=== PATIENT | male | born 1955 | race Caucasian/White ===

== ENCOUNTER → 2021-06-20 09:03 | Outpatient (BNVA) | payer MEDICARE, SELFPAY | PROVIDERS: PCP Family Medicine; Referring Provider Family Medicine; Visit Provider Anesthesiology Pain Medicine | DX: M51.16 Intervertebral disc disorders with radiculopathy, lumbar region (principal); M47.816 Spondylosis without myelopathy or radiculopathy, lumbar region; Z98.890 Other specified postprocedural states; Z79.891 Long term (current) use of opiate analgesic | CPT/HCPCS: 99204 ==

== ENCOUNTER 2021-07-13 06:57 | Outpatient (CLI) | payer MEDICARE, SELFPAY ==
--- NOTE | 2021-07-13 07:15 | MR_ITS ---
WS: [id number] MRI LUMBAR SPINE NONCONTRAST HISTORY: Chronic low back pain and RIGHT leg pain COMPARISON: None available. TECHNIQUE: Sagittal and axial multisequence imaging is submitted. Advanced degenerative disc disease with osteophytes and disc bulging in the cervical spine. Most sign ificant at C4-5 and C6-7 where there is disc and osteophyte contact on the central canal. Additional smaller protrusions throughout the thoracic spine at multiple levels. No high-grade stenosis identifi ed on the appointment setter series. Straightening of the normal lumbar lordosis. Advanced degenerative disc disease and osteophytosis throughout the lumbar spine. Increased T1 and T2 signal in the L5 vertebral body which is low signal on the STIR sequence therefore likely fatty repl acement. There is a small amount of marrow edema in the LEFT L4 pedicle and facet. No fractures. Conus terminates normally at L1-2 disc level. T10-11: Central disc protrusion contacting and causing slight deformity the ventral cord. L1-L2: Diffuse moderate annular disc bulging and osteophytic ridging with mild ligamentum flavum hype rtrophy and facet arthritis. Mild central and bilateral subarticular and foraminal stenosis. Mild fac et joint arthritis. L2-L3: Diffuse annular disc bulging and osteophytic ridging with mild ligamentum flavum hypertrophy a nd facet arthritis. Mild narrowing of the central canal and foramen. Mild facet joint arthritis. L3-L4: Moderate annular disc bulging with osteophytic ridging. Disc is contacting and deforming the v entral thecal sac and moderate bilateral subarticular recess and RIGHT foraminal stenosis. Severe LEF T foraminal stenosis with complete effacement of fat. Moderate bilateral facet joint arthritis, LEFT greater than RIGHT. L4-L5: Diffuse moderate annular disc bulging asymmetric to the LEFT. There is disc contacting the tra versing L5 nerve roots of slight displacement. Moderate central stenosis with moderate RIGHT subartic ular and foraminal stenosis. Severe LEFT subarticular and foraminal stenosis. Marked bilateral facet joint arthritis, LEFT greater than RIGHT. L5-S1: Marked annular disc bulging with a central disc protrusion. Diffuse osteophytic ridging around the vertebral bodies. Mild central stenosis with moderate to severe bilateral subarticular foraminal stenosis. Fluid in the facet joints bilaterally with severe facet arthritis. Patient denied prior surgery. There does appear to be a LEFT hemilaminectomy defect at the L5-S1 leve l. Possible additional laminectomy defects at L3-4 and L4-5 which may be quite remote. MR/MR lumbar spine wo con* [id number] IMPRESSION: 1. Mild central stenosis with moderate to severe bilateral subarticular and fo raminal stenosis at L5-S1. Complete effacement of fat in the foramen. 2. Severe LEFT subarticular foraminal stenosis at L4-5 with moderate central a nd RIGHT subarticular foraminal stenosis. 3. Severe LEFT foraminal stenosis at L3-4 with moderate bilateral subarticular and RIGHT foraminal stenosis. 4. Mild central, bilateral subarticular and foraminal stenosis at L1-2. 5. Facet joint arthritis throughout the lumbar spine, most significant from L3 -4 to L5-S1. 6. Central disc protrusion at T10-11 contacts and causing slight deformity of the ventral cord.
== END 2021-07-13 06:58 | disposition home or self-care (01) ==
LOC: RADSHAW 07:01
PROVIDERS: PCP Family Medicine; Visit Provider Anesthesiology Pain Medicine
DX: Z98.890 Other specified postprocedural states (principal); M79.604 Pain in right leg; M48.061 Spinal stenosis, lumbar region without neurogenic claudication; M47.817 Spondylosis without myelopathy or radiculopathy, lumbosacral region; M47.816 Spondylosis without myelopathy or radiculopathy, lumbar region; M51.24 Other intervertebral disc displacement, thoracic region
CPT/HCPCS: 72148

== ENCOUNTER → 2021-07-16 09:04 | Outpatient (BNVA) | payer MEDICARE, SELFPAY | PROVIDERS: PCP Family Medicine; Visit Provider Anesthesiology Pain Medicine | DX: M51.16 Intervertebral disc disorders with radiculopathy, lumbar region (principal); M47.816 Spondylosis without myelopathy or radiculopathy, lumbar region; Z98.890 Other specified postprocedural states; M79.604 Pain in right leg; M79.605 Pain in left leg; Z79.891 Long term (current) use of opiate analgesic | CPT/HCPCS: 99215 ==

== ENCOUNTER 2021-07-25 14:12 | Outpatient (CLI) | payer MEDICARE, SELFPAY ==
--- NOTE | 2021-07-25 17:23 | ONC CON_ITS ---
Dr. Correa New Patient Note Patient: Mike Johnson Unit #: [id number]: 1955 Dicatated By: Jenlele Correa M.D.Date of Visit: Jul 25, 2021 Onc MED New Patient/Consult Referring Physician: Jabier Rodríguez History of Present Illness: Mr. 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, as per patient he went for routine checkup and underwent screening colonoscopy and found to have upper rectal mass and biopsy confirmed adenocarcinoma clinical stage was T4 N1 M0 based on scans, and his CEA was 40.8, patient was started on combined chemoradiation with continuous infusional 5-FU on April 09, 2017 and he underwent low anterior resection on August 06, 2017 and final pathology report showed T3 N0 M0 disease with a positive circumferential radial margins of both rectum and sigmoid colon, patient was offered adjuvant therapy with FOLFOX 6 which she started on September 15, 2017, subsequently patient developed progressive peripheral neuropathy involving bilateral fingertips and toes requiring oxaliplatin dose reduction to complete adjuvant chemotherapy, as per patient he was treated with Cymbalta and lidocaine cream without much help, he was evaluated by neurology, he was given gabapentin, patient has history of chronic back pain for which he is followed in pain clinic, patient received all these treatments in [place] and was followed by medical oncology there until June 2020, when he had his yearly follow-up CT scan of chest abdomen pelvis done on June 30, 2020 which shows changes of colorectal surgery are seen again with a loop ileostomy. Associated presacral thickening and perirectal infiltration is grossly unchanged. Likely posttreatment changes. No associated soft tissue mass or nodule seen. No thoracic or abdominal or pelvic lymphadenopathy. Hepatomegaly with hepatohyperattenuation likely fatty liver. , In October 2020 patient decided to move to [facility] and now decided to establish his care here at [facility]. Patient denies any specific complaint except generalized weakness and fatigue but no melena hematochezia no hemoptysis hematemesis, no jaundice, no abdominal pain, patient still has ileostomy bag, as per patient he was offered colostomy bag reversal but he decided not to consider as many of his friends told him that stool incontinence is common, moreover he got used to colostomy bag and moreover his was going through her own health problem including recurrent breast cancer, he decided not to go for further surgeries. Past Medical History: Mr. Johnson's medical history consists of hyperlipidemia, hypertension, and type II diabetes. Past Surgical History: Mr. Johnson's surgical/procedural history consists of back surgery x 2, cholecystectomy, colon resection with ileostomy, and small bowel resection. Medications: amLODIPine Besylate 1 Tablet (of 5 mg) Oral daily, Gabapentin 1 Tablet (of 800 mg) Oral t.i.d., HumaLOG 30 Unit(s) Subcutaneous t.i.d., Lantus 25 Unit(s) Subcutaneous b.i.d., Lisinopril 1 Tablet (of 40 mg) Oral b.i.d., metFORMIN HCl 1 Tablet (of 1000 mg) Oral b.i.d. Allergies: No Known Allergies. Social History: Mr. Johnson is . Mr. Johnson no longer smokes. He has no history of drinking. Family History: There is no documented family history. Review Of Symptoms: Review of Systems is not available for this patient. Vital Signs: Performed on Jul 25, 2021 16:03: 5, 7, 34.17 (HIGH), 2.20 sq.m, 69 in, 96 %, 82 /min, 18 /min, 165/77 mm(hg) (HIGH), 99.3 F (HIGH), and 231.4 lbs (HIGH). Performance Status: 0 - Fully active, able to carry on all predisease activities without restrictions. (ECOG) Physical Examination: ENMT - No mouth sores, no thrush, no jaundice, no cervical lymphadenopathy, Respiratory - Lungs are clear to auscultation, Cardiovascular - Regular rate and rhythm of heart, Abdomen - Soft, bowel sounds present, ileostomy bag, functioning fine, Extremities - No visible edema or rash. Lab/Imaging: Most recent lab results are not available for this patient. Impression: T4 N1 M0 adenocarcinoma of the upper rectum diagnosed in early 2016, CEA was 40.8, at the time of diagnosis status post neoadjuvant chemoradiation with continuous infusion of 5-FU starting April 09, 2017, followed by low anterior resection on August 06, 2017, final pathology report showed T3 N0 M0 disease with positive circumferential radial margins of both rectum and sigmoid colon, patient was treated with adjuvant therapy with FOLFOX 6 starting September 15, 2017, required oxaliplatin dose reduction due to progressive peripheral neuropathy Loop ileostomy bag, patient decided to keep it although he was offered ileostomy reversal Diabetes mellitus Chronic back pain Chronic peripheral neuropathy involving fingertips and toes. Follow-up yearly CT scan of chest abdomen pelvis done on June 30, 2020 showed presacral thickening and perirectal infiltration is grossly unchanged, likely postop changes. No associated soft tissue nodule or mass to suggest local recurrence. Changes of colorectal surgery are again seen with loop ileostomy. No central lymphadenopathy. Hepatomegaly and hepatic hypoattenuation, likely fatty liver Plan: Discussed with patient regarding his disease status, question concerns, patient is here to establish as follow-up care from oncology point of view as he has decided to move to [facility] from [place] recently. Patient denies any new signs symptom suggestive of recurrence of disease, at this point we will schedule him for yearly follow-up CT scan of chest abdomen pelvis and then patient return to clinic in 2 months with CBC CMP and CEA, along with follow-up CT scan of chest abdomen pelvis As far as chronic back pain and peripheral neuropathy is concerned, patient is being followed in pain clinic. Signed By: Jenelle Correa M.D. <<Signature on File>>
== END 2021-07-25 14:13 | disposition home or self-care (01) ==
LOC: ONCMED 14:18
PROVIDERS: PCP Family Medicine; Visit Provider Internal Medicine Hematology & Oncology
DX: C20 Malignant neoplasm of rectum (principal); Z93.3 Colostomy status; E11.9 Type 2 diabetes mellitus without complications; M54.50 Low back pain, unspecified; G89.29 Other chronic pain; G62.9 Polyneuropathy, unspecified; Z79.899 Other long term (current) drug therapy
CPT/HCPCS: 99205

== ENCOUNTER 2021-10-25 07:06 | Outpatient (CLI) | payer MEDICARE, SELFPAY ==
--- NOTE | 2021-10-25 07:17 | ECG_ITS ---
[facility] Test Date: 2021-10-25 Pat Name: Mike Johnson Department: Room: Gender: Male Clinical Specialist Medical Device: : 1955 Requested By: Roselia Levi Order Number: [id number] Walker MD: Roselia Levi M.D. Interpretive Statements NAME OF STUDY: LEXISCAN SESTAMIBI STRESS TEST INDICATION: Chest Pain PROCEDURE: At the baseline, the blood pressure was 144/58 mmHg with a heart rate of 61 bpm. The electrocardiogram showed normal sinus rhythm, normal axis. Nonspecific T wave changes. The Lexiscan was infused over a period of 20 seconds. A total of 0.4 milligrams of Lexiscan was infused. The stress phase was continued for a total of 5 minutes. Heart rate at the end of the stress phase was 86 bpm with a blood pressure of 140/53 mmHg. The EKG at the peak infusion revealed no significant ST-T wave changes. The study was terminated due to protocol completion. Sestamibi was injected 20 seconds after the Lexiscan infusion. Blood pressure at the end of the recovery phase was 146/64 mmHg with a heart rate of 92 beats per minute. CONCLUSION: 1. No significant EKG changes with the LexiScan infusion. 2. No LexiScan induced chest pain or cardiac arrhythmia. 3. Normal blood pressure and heart rate response. 4. Sestamibi/sestamibi perfusion scan pending; see separate report. Electronically Signed On 10-29-2021 11:11:44 CERTIFIED HYPERBARIC TECHNOLOGIST by Roselia Levi M.D. [id number]
--- NOTE | 2021-10-25 07:18 | NMCV_ITS ---
NM julianna perf SPECT r/s* [id number] Mike Johnson Age: 66 Gender: M : 1955 Exam Date: 10/25/2021 07:54 Ordering Phys: Roselia Levi MD ([email or web address]) Technologist: NURY Aguirre Exam Location: [facility] Indications: CHEST PAIN STRESS TEST Please see separate stress test report in [facility] for full findings IMAGE PROTOCOL Rest/Stress 1 Lexiscan Day Radiopharmaceutical Dose (mCi) Administration Site Administered by Rest: Tc-99m 10.4 IV NURY Vivas Sestamibi Stress:Tc-99m 32.9 IV NURY Vivas Sestamibi Rest: 25-Oct-2021 60 Discovery 630 Stress: 25-Oct-2021 30 Discovery 630 0.4mg Lexiscan. Images obtained in supine and prone position. SPECT RESULTS Technical Quality: Excellent Raw Data Analysis: Normal Image Corrections: No attenuation or motion correction applied Summed Stress Score: 0 Summed Rest Score: 1 Summed Difference Score: 0 PERFUSION FINDINGS Small size perfusion abnormality of mild severity of apical lateral wall and rest and stress images. FUNCTIONAL RESULTS (calculated via Gated SPECT) Stress Image LV EF (%): 72 Stress EDV (mL):106 TID: 0.93 Stress ESV (mL):30 FUNCTIONAL FINDINGS: The left ventricle is normal in size. Transient Ischemia Dilatation of 0.93. There is normal left ventricular systolic function. The left ventricular ejection fraction is normal with a value of 72%. There is normal left ventricular wall thickening with no regional wall motion abnormality. IMPRESSIONS 1. Small sized perfusion abnormality of mild severity of apical lateral wall. This may represent attenuation artifact or old myocardial infarction. 2. Overall left ventricular systolic function is normal without regional wall motion abnormalities. 3. The left ventricular ejection fraction is normal with a value of 72%. 4. No significant EKG changes with Lexiscan infusion. Please refer to separate report for details. 5. No coronary ischemia based on the study. Roselia Levi MD (Electronically Signed) Final Date: 29 October 2021 11:12 S
[2021-10-25 07:51] VITALS: BMI 33.6
[2021-10-25] MEDS: regadenoson 0.4 Mg/5 ml Syringe IVP (08:42)
[2021-10-25 09:10] VITALS: BP 147/54; PULSE 86
== END 2021-10-25 07:07 | disposition home or self-care (01) ==
LOC: RAD 07:08 → CDL 07:16
PROVIDERS: PCP Family Medicine; Visit Provider Internal Medicine Cardiovascular Disease
DX: R07.9 Chest pain, unspecified (principal)
CPT/HCPCS: 78452; 93017; A9500; J2785

== ENCOUNTER 2021-11-22 10:29 | Outpatient (CLI) | payer MEDICARE, SELFPAY ==
--- NOTE | 2021-11-22 10:36 | CT_ITS ---
WS: [id number] CT ABDOMEN AND PELVIS WITH CONTRAST HISTORY: PERSONAL HX OF OTHER MALIGNANT NEOPLASM OF LARGE INTESTINE TECHNIQUE: Imaging performed of the abdomen and pelvis with IV contrast. Single phase imaging of the abdomen. Coronal and sagittal reformats are submitted. All CT scans at [facility] use at [address] one of these dose optimization techniques: automated exposure control; mA and/or kV adjustment per patient size (includes targeted exams where dose is matched to clinical indication); or iterative re construction. IV CONTRAST: Omnipaque 300; 95 mL IV. Oral contrast: Yes. DLP: 1351.65 mGy.cm COMPARISON: None. Lower thorax: Lung bases are clear. Heart is normal size. Small hiatal hernia. Liver/biliary system: Normal size with no intrahepatic dilatation. Normal portal vein. Gallbladder: Status post cholecystectomy. Pancreas: Normal size pancreas and pancreatic duct. No adjacent inflammation. Spleen: Normal size spleen. No mass or infarct. Adrenal glands: Normal. Right kidney: Normal. Left kidney: Very mild dilatation of the LEFT renal pelvis. No obstructing stone or mass is identifie d. Etiology of the mild dilatation is not certain. No mass. Aorta: Mild atherosclerosis with no aneurysm. Lymphadenopathy: None. Free fluid: None. GI tract: Minimal distention of the stomach. No small bowel obstruction. There is mild fecal retentio n and constipation. Distal colon is collapsed. Numerous surgical sutures are noted at the rectum. The re is adjacent perirectal soft tissue stranding and presacral soft tissue thickening. There is no dis crete well-formed mass. No prior studies for comparison to evaluate for any change. No adenopathy in the mesorectal fat. The appendix is normal. Abdominal wall: RIGHT lateral abdominal wall ostomy. There is a loop of contrast-containing small bow el in the ostomy. No obstructive changes. Pelvis: Presacral soft tissue thickening and rectal surgical sutures. No adenopathy. Urine nondistend ed urinary bladder. Inguinal canals are patent bilaterally containing fat only. Bones: Straightening of the normal lumbar lordosis. Facet joint arthritis and degenerative disc disea se. No osteoblastic or osteolytic bone disease. CT/CT abdomen pelvis w con* [id number] IMPRESSION: 1. No prior studies for comparison to evaluate for subtle changes from the rec yaneth surgery. 2. Postoperative surgical sutures at the rectum. There is perirectal soft tiss ue thickening but no adenopathy. If prior outside imaging studies become availa ble comparison can be performed to evaluate for long-term stability. No discret e mass. 3. RIGHT lower quadrant ostomy site. 4. No metastatic disease within the liver or adrenal glands. 5. Very minimal dilatation of the LEFT renal pelvis. There may be is mild LEFT UP junction obstruction. No ureteral stone or calcification seen. 6. Prior cholecystectomy.
--- NOTE | 2021-11-22 10:36 | XR_ITS ---
WS: [id number] CHEST 2 VIEWS HISTORY: CHEST PAIN/HX OF MALIGNANT NEOPLASM OF SMALL INTESTINE COMPARISON: None available. Lungs: Clear with no abnormality. No pleural effusion or pneumothorax. Cardiac size: Normal. Mediastinum/Aorta: Normal mediastinum. Bones: Normal. RIGHT subclavian Mediport is present with tip in the distal SVC. XR/XR chest 2V* [id number] IMPRESSION: 1. No pneumonia or pulmonary nodules. 2. Mediport remains in good position.
[2021-11-22] MEDS: iohexol 300 mg/mL 50 mL Btl PO (10:57)
[2021-11-22] MEDS: iohexol 300 mg/mL 100 mL Btl IV (12:39)
[2021-11-22 12:56] LABS: Blood Urea Nitrogen 26 mg/dL (8-23)
== END 2021-11-22 10:30 | disposition home or self-care (01) ==
LOC: RAD 10:34
PROVIDERS: PCP Family Medicine; Visit Provider Internal Medicine Hematology & Oncology
DX: Z85.068 Personal history of other malignant neoplasm of small intestine (principal); Z85.038 Personal history of other malignant neoplasm of large intestine; R07.9 Chest pain, unspecified; Z90.49 Acquired absence of other specified parts of digestive tract; Z93.3 Colostomy status
CPT/HCPCS: 71046; 74177; 82565; 84520

== ENCOUNTER 2021-12-14 09:01 | Outpatient (CLI) | payer MEDICARE, SELFPAY ==
[2021-12-14 09:52] LABS: Basophils # 0.1 10^3/uL (0.0-0.1); Basophils % 0.7 %; Eosinophils # 0.3 10^3/uL (0.0-0.8); Eosinophils % 2.9 %; Hematocrit 39.3 % (42.0-52.0); Hemoglobin 13.6 g/dL (11.7-16.6); Lymphocytes # 2.1 10^3/uL (0.8-4.8); Lymphocytes % 25.1 %; Mean Corpuscular HGB Conc 34.6 g/dL (30.0-36.0); Mean Corpuscular Hemoglobin 30.8 pg (28.0-34.0); Mean Corpuscular Volume 88.9 fl (80-94); Mean Platelet Volume 10.7 fL (7.4-10.4); Monocytes # 0.7 10^3/uL (0.2-0.9); Monocytes % 8.2 %; Neutrophils # 5.32 10^3/uL (1.8-7.7); Neutrophils % 62.5 %; Nucleated Red Blood Cells % 0 %; Platelet Count 324 10^3/cmm (130-400); Red Blood Count 4.42 10^6/uL (4.1-5.3); Red Cell Distribution Width 12.5 % (12.1-15.1); White Blood Count 8.5 10^3/uL (4.0-10.0)
[2021-12-14 10:23] LABS: Alanine Aminotransferase 30 U/L (0-41); Albumin Level 4.7 g/dL (3.5-5.2); Alkaline Phosphatase 93 IU/L (40-130); Blood Urea Nitrogen 48 mg/dL (8-23); Carbon Dioxide 16 mmol/L (22-29); Chloride 105 mmol/L (98-107); Glomerular Filtration Rate 67.4 mL/min (90-130); Glucose 330 mg/dL (65-115); Osmolality Calculated 305 mOsm/kg (285-295); Sodium 135 mmol/L (136-145); Total Bilirubin 0.2 mg/dL (0.15-1.2); Total Protein 7.7 g/dL (6.6-8.7)
[2021-12-14 10:25] LABS: Anion Gap 18.4 (5-19); Aspartate Amino Transferase 21 U/L (0-40); Potassium 4.4 mmol/L (3.5-5.1)
--- NOTE | 2021-12-14 12:08 | ONC FU_ITS ---
Dr. Correa follow up note Patient: Mike Johnson Unit #: [id number]: 1955 Dicatated By: Jenelle Correa M.D.Date of Visit:Dec 14, 2021 Onc Med Follow-up/Prog Note History of Present Illness: Mr. 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, as per patient he went for routine checkup and underwent screening colonoscopy and found to have upper rectal mass and biopsy confirmed adenocarcinoma clinical stage was T4 N1 M0 based on scans, and his CEA was 40.8, patient was started on combined chemoradiation with continuous infusional 5-FU on April 09, 2017 and he underwent low anterior resection on August 06, 2017 and final pathology report showed T3 N0 M0 disease with a positive circumferential radial margins of both rectum and sigmoid colon, patient was offered adjuvant therapy with FOLFOX 6 which she started on September 15, 2017, subsequently patient developed progressive peripheral neuropathy involving bilateral fingertips and toes requiring oxaliplatin dose reduction to complete adjuvant chemotherapy, as per patient he was treated with Cymbalta and lidocaine cream without much help, he was evaluated by neurology, he was given gabapentin, patient has history of chronic back pain for which he is followed in pain clinic, patient received all these treatments in [place] and was followed by medical oncology there until June 2020, when he had his yearly follow-up CT scan of chest abdomen pelvis done on June 30, 2020 which shows changes of colorectal surgery are seen again with a loop ileostomy. Associated presacral thickening and perirectal infiltration is grossly unchanged. Likely posttreatment changes. No associated soft tissue mass or nodule seen. No thoracic or abdominal or pelvic lymphadenopathy. Hepatomegaly with hepatohyperattenuation likely fatty liver. , In October 2020 patient decided to move to [facility] and now decided to establish his care here at [facility]. surgeries. Follow-up CT scan of chest abdomen pelvis done on November 22, 2021 showed Port-A-Cath in the right subclavian otherwise no pulmonary nodules or lymphadenopathy CT scan of abdomen pelvis showed postoperative changes in the rectum. There is a perirectal soft tissue thickening but no lymphadenopathy, no discrete mass seen. Right lower quadrant ostomy site. No metastatic disease within liver or adrenal gland. Very minimal dilatation of left renal pelvis no ureteral stone or calcification.As per radiologist,No previous scan available for comparison Came for follow-up, denies any specific complaints, no fever chills, no nausea or vomiting, no diarrhea or constipation, no melena hematochezia, no hemoptysis hematemesis, no jaundice, no abdominal pain, no new bony pains, colostomy is functioning fine. Medications: amLODIPine Besylate 1 Tablet (of 5 mg) Oral daily, Gabapentin 1 Tablet (of 800 mg) Oral t.i.d., glyBURIDE 1 Tablet Oral daily, HumaLOG 30 Unit(s) Subcutaneous t.i.d., Lantus 25 Unit(s) Subcutaneous b.i.d., Lisinopril 1 Tablet (of 40 mg) Oral b.i.d., metFORMIN HCl 1 Tablet (of 1000 mg) Oral b.i.d. Allergies: No Known Allergies. Review of Systems: Review of Systems is not available for this patient. Vital Signs: Performed on Dec 14, 2021 10:39 Height - 69.00 in Weight - 220.8 lbs (LOW) BSA - 2.15 sq.m BMI - 32.61 (HIGH) Temperature - 98.4 F Pulse - 83 /min Respiration - 16 /min BP - 139/74 mm(hg) O2 Sat - 98 % Pain - 6 Fatigue - 5 Performance Status: 0 - Fully active, able to carry on all predisease activities without restrictions. (ECOG) Physical Examination: ENMT - No mouth sores, no thrush, no jaundice, Respiratory - Lungs are clear to auscultation, Cardiovascular - Regular rate and rhythm of heart, Abdomen - Soft, bowel sounds present, Colostomy site clean, Extremities - No visible edema. Lab/Imaging: Most recent lab results are not available for this patient. Impression: T4 N1 M0 adenocarcinoma of the upper rectum diagnosed in early 2016, CEA was 40.8, at the time of diagnosis status post neoadjuvant chemoradiation with continuous infusion of 5-FU starting April 09, 2017, followed by low anterior resection on August 06, 2017, final pathology report showed T3 N0 M0 disease with positive circumferential radial margins of both rectum and sigmoid colon, patient was treated with adjuvant therapy with FOLFOX 6 starting September 15, 2017, required oxaliplatin dose reduction due to progressive peripheral neuropathy Loop ileostomy bag, patient decided to keep it although he was offered ileostomy reversal Diabetes mellitus Chronic back pain Chronic peripheral neuropathy involving fingertips and toes. Follow-up yearly CT scan of chest abdomen pelvis done on June 30, 2020 showed presacral thickening and perirectal infiltration is grossly unchanged, likely postop changes. No associated soft tissue nodule or mass to suggest local recurrence. Changes of colorectal surgery are again seen with loop ileostomy. No central lymphadenopathy. Hepatomegaly and hepatic hypoattenuation, likely fatty liver Plan: Discussed with patient regarding labs white blood count 8.5 hemoglobin 13.6 hematocrit 39.3 platelets 324,000 CMP within normal limit except glucose 330 and follow-up CT scan of chest abdomen pelvis which showed no evidence of recurrence of disease, postoperative changes seen in the rectum Clinically, patient doing well with no new signs symptom suggestive of recurrence of disease, his lab work-up is within normal range except hyperglycemia which is being managed by his PMD. His follow-up yearly CT scan of chest abdomen pelvis shows no evidence of recurrence of disease. Patient is considering colostomy reversal, he would call his surgeon in [place] regarding reversal. And we will see him back in 1 year with CBC CMP, CEA and follow-up CT scan of abdomen pelvis and chest x-rayWhile continue with monthly port maintenance Signed By: Jenelle Correa M.D. <<Signature on File>>
== END 2021-12-14 09:02 | disposition home or self-care (01) ==
PROVIDERS: PCP Family Medicine; Visit Provider Internal Medicine Hematology & Oncology
DX: Z08 Encounter for follow-up examination after completed treatment for malignant neoplasm (principal); Z85.048 Personal history of other malignant neoplasm of rectum, rectosigmoid junction, and anus; Z93.3 Colostomy status; E11.9 Type 2 diabetes mellitus without complications; M54.9 Dorsalgia, unspecified; K76.0 Fatty (change of) liver, not elsewhere classified; Z79.4 Long term (current) use of insulin; Z92.21 Personal history of antineoplastic chemotherapy
CPT/HCPCS: 36591; 80053; 85025; 99214

== ENCOUNTER → 2022-04-22 08:57 | Outpatient (BNVA) | payer MEDICARE, SELFPAY | PROVIDERS: PCP Family Medicine; Visit Provider Anesthesiology Pain Medicine | DX: M51.16 Intervertebral disc disorders with radiculopathy, lumbar region (principal); M47.816 Spondylosis without myelopathy or radiculopathy, lumbar region; M79.605 Pain in left leg; M79.604 Pain in right leg; Z98.890 Other specified postprocedural states; Z79.891 Long term (current) use of opiate analgesic | CPT/HCPCS: 99214 ==

== ENCOUNTER → 2022-05-24 10:37 | Outpatient (BNVA) | payer MEDICARE, SELFPAY | PROVIDERS: PCP Family Medicine; Visit Provider Internal Medicine Cardiovascular Disease | DX: R07.89 Other chest pain (principal); I10 Essential (primary) hypertension; R94.39 Abnormal result of other cardiovascular function study; R09.89 Other specified symptoms and signs involving the circulatory and respiratory systems; Z82.49 Family history of ischemic heart disease and other diseases of the circulatory system; Z87.891 Personal history of nicotine dependence | CPT/HCPCS: 99214 ==

== ENCOUNTER → 2022-06-04 13:43 | Outpatient (BNVA) | payer MEDICARE, SELFPAY | PROVIDERS: PCP Family Medicine; Visit Provider Anesthesiology Pain Medicine | DX: Z87.891 Personal history of nicotine dependence (principal); M47.816 Spondylosis without myelopathy or radiculopathy, lumbar region | CPT/HCPCS: 64493; 64494; 64495; J3490 ==

== ENCOUNTER → 2022-06-19 10:19 | Outpatient (BNVA) | payer MEDICARE, SELFPAY | PROVIDERS: PCP Family Medicine; Visit Provider Anesthesiology Pain Medicine | DX: M51.16 Intervertebral disc disorders with radiculopathy, lumbar region (principal); M47.816 Spondylosis without myelopathy or radiculopathy, lumbar region; M79.604 Pain in right leg; M79.605 Pain in left leg; Z98.890 Other specified postprocedural states; Z87.891 Personal history of nicotine dependence | CPT/HCPCS: 99214 ==

== ENCOUNTER → 2022-07-08 13:32 | Outpatient (BNVA) | payer MEDICARE, SELFPAY | PROVIDERS: PCP Family Medicine; Visit Provider Anesthesiology Pain Medicine | DX: Z87.891 Personal history of nicotine dependence (principal); Z79.4 Long term (current) use of insulin; M47.816 Spondylosis without myelopathy or radiculopathy, lumbar region; E11.9 Type 2 diabetes mellitus without complications | CPT/HCPCS: 36416; 64635; 64636; 82962 ==

== ENCOUNTER → 2022-07-24 08:54 | Outpatient (BNVA) | payer MEDICARE, SELFPAY | PROVIDERS: PCP Family Medicine; Visit Provider Anesthesiology Pain Medicine | DX: M51.16 Intervertebral disc disorders with radiculopathy, lumbar region (principal); M47.816 Spondylosis without myelopathy or radiculopathy, lumbar region; M79.604 Pain in right leg; M79.605 Pain in left leg; Z87.891 Personal history of nicotine dependence; Z98.890 Other specified postprocedural states | CPT/HCPCS: 99214 ==

== ENCOUNTER 2022-07-31 13:32 | Outpatient (CLI) | payer MEDICARE, SELFPAY ==
--- NOTE | 2022-07-31 13:45 | USCV_ITS ---
Mike Johnson Age: 67 Gender: M : 1955 Exam Date: 07/31/2022 13:59 Ordering Phys: Roselia Levi MD ([email or web address]) Technologist: MIRANDA Exam Location: [facility] [place] Indication: BRUIT Risk Factors: Previous Vascular Surgery: Right Brachial BP: / Left Brachial BP: / Right Left Velocity (cm/s) Spectral Plaque Velocity (cm/s) Spectral Plaque Syst/Diast Broadening Syst/Diast Broadening 51.90/ 12.50 Prox CCA 99.90 / 14.50 56.50/ 11.80 Mid CCA 84.10 / 15.80 61.10/ 8.50 Hetro Distal CCA 76.20 / 13.10 Hetro 70.90/ 17.10 Hetro Prox ICA 102.50/ 21.00 Hetro 80.30/ 23.10 Hetro Mid ICA 83.80 / 15.40 Hetro 94.80/ 24.80 Hetro Distal ICA 77.20 / 20.90 Hetro 382.80 Hetro ECA 128.80 1.55 ICA/CCA 1.03 Antegrade Vertebral Antegrade 52.10/ 6.00 cm/s 104.7/ 11.00 cm/s 0 Tri Subclavian Tri 117.0 139.3 0 0 FINDINGS Mild to moderate heterogenous plaques at the right bifurcation and proximal internal carotid artery Mild to moderate dense plaques at the left bifurcation and proximal internal carotid artery Antegrade flow in the vertebral arteries bilaterally Normal Doppler velocities in the subclavian arteries bilaterally Elevated velocity in the right external carotid artery CONCLUSIONS Mild to moderate heterogenous plaques at the right bifurcation and proximal internal carotid artery with the Doppler features suggesting less than 50% stenosis Mild to moderate dense plaques at the left bifurcation and proximal internal carotid artery relative Doppler features suggesting less than 50% stenosis. Elevated velocity in the external carotid artery on the right side, suggestive of hemodynamically significant stenosis. Dr Lilly Orozco MD [facility] (Electronically Signed) Final Date: 01 August 2022 22:42 S
== END 2022-07-31 13:33 | disposition home or self-care (01) ==
PROVIDERS: PCP Family Medicine; Visit Provider Internal Medicine Cardiovascular Disease
DX: R09.89 Other specified symptoms and signs involving the circulatory and respiratory systems (principal); I65.23 Occlusion and stenosis of bilateral carotid arteries
CPT/HCPCS: 93880

== ENCOUNTER 2022-12-19 08:03 | Outpatient (CLI) | payer MEDICARE, SELFPAY ==
--- NOTE | 2022-12-19 08:18 | XR_ITS ---
WS: [id number] Right hip, AP and frog-leg views, 12/19/2022 Clinical Data: PAIN IN R HIP Comparison: None. Findings: No fractures or dislocations are seen. The hip joint is intact. The soft tissues are not remarkable. The adjacent pelvis is normal. The right hip shows no erosion, sclerosis, narrowing, cyst formation or fragmentation of the right fe moral head. There are vascular calcifications. XR/XR hip RT 2-3V wo/w pel* [id number] Impression: Negative right hip. Tonnis classification: grade 0: normal radiographs
== END 2022-12-19 08:04 | disposition home or self-care (01) ==
PROVIDERS: PCP Family Medicine; Visit Provider Family Medicine
DX: M25.551 Pain in right hip (principal)
CPT/HCPCS: 73502

== ENCOUNTER → 2023-05-23 09:26 | Outpatient (BNVA) | payer MEDICARE, SELFPAY | PROVIDERS: PCP Family Medicine; Visit Provider Internal Medicine Cardiovascular Disease | DX: R07.89 Other chest pain (principal); R09.89 Other specified symptoms and signs involving the circulatory and respiratory systems; I10 Essential (primary) hypertension; R94.39 Abnormal result of other cardiovascular function study; Z82.49 Family history of ischemic heart disease and other diseases of the circulatory system; E11.69 Type 2 diabetes mellitus with other specified complication; Z79.4 Long term (current) use of insulin; Z87.891 Personal history of nicotine dependence | CPT/HCPCS: 99214 ==

== ENCOUNTER 2023-07-23 09:08 | Outpatient (CLI) | payer MEDICARE, SELFPAY ==
--- NOTE | 2023-07-23 10:30 | USCV_ITS ---
Alex Mike Age: 68 Gender: M : 1955 Exam Date: 07/23/2023 09:51 Ordering Phys: Roselia Levi MD ([email or web address]) Technologist: MARGARET Exam Location: [facility] [place] Indication: BRUIT Risk Factors: Previous Vascular Surgery: Right Brachial BP: / Left Brachial BP: / Right Left Velocity (cm/s) Spectral Plaque Velocity (cm/s) Spectral Plaque Syst/Diast Broadening Syst/Diast Broadening 62.30/ 11.50 Prox CCA 112.50/ 23.20 70.30/ 13.80 Mid CCA 106.90/ 22.10 66.40/ 17.10 Distal CCA 92.30 / 15.40 57.90/ 12.50 Prox ICA 113.10/ 19.70 107.20/32.20 Mid ICA 87.10 / 23.70 93.80/ 18.60 Distal ICA 81.20 / 22.20 280.30 ECA 223.20 1.52 ICA/CCA 1.01 Antegrade Vertebral Antegrade 67.30/ 11.00 cm/s 18.40/ 10.50 cm/s Tri Subclavian Tri 124.5 146.8 0 0 FINDINGS Comparison:. 07/31/22 Mild elevation of systolic and diastolic velocities. Diffuse bilateral scattered calcified plaque and intimal thickening throughout the common carotid arteries and extending through the bifurcation. Antegrade vertebral arteries. CONCLUSIONS Bilateral ICA stenosis less than 50%. Mild diffuse carotid atherosclerosis. Dr. Janie Meraz DO (Electronically Signed) Final Date: 23 July 2023 11:05 S
== END 2023-07-23 09:09 | disposition home or self-care (01) ==
PROVIDERS: PCP Family Medicine; Visit Provider Internal Medicine Cardiovascular Disease
DX: R09.89 Other specified symptoms and signs involving the circulatory and respiratory systems (principal); I65.23 Occlusion and stenosis of bilateral carotid arteries
CPT/HCPCS: 93880

== ENCOUNTER → 2024-02-11 08:37 | Outpatient (BNVA) | payer MEDICARE, SELFPAY | PROVIDERS: PCP Family Medicine; Visit Provider Surgery | DX: Z12.11 Encounter for screening for malignant neoplasm of colon (principal); Z85.048 Personal history of other malignant neoplasm of rectum, rectosigmoid junction, and anus | CPT/HCPCS: 99204 ==

== ENCOUNTER → 2024-03-11 10:42 | Outpatient (BNVA) | payer MEDICARE, SELFPAY | PROVIDERS: PCP Family Medicine; Visit Provider Internal Medicine Cardiovascular Disease | DX: R06.02 Shortness of breath (principal); R01.1 Cardiac murmur, unspecified; I10 Essential (primary) hypertension; R09.89 Other specified symptoms and signs involving the circulatory and respiratory systems; E11.69 Type 2 diabetes mellitus with other specified complication; Z79.4 Long term (current) use of insulin; Z87.891 Personal history of nicotine dependence | CPT/HCPCS: 80048; 83880; 99214 ==

== ENCOUNTER 2024-03-24 11:06 | Outpatient (CLI) | payer MEDICARE, SELFPAY ==
--- NOTE | 2024-03-24 11:45 | USCV_ITS ---
Mike Johnson Age: 68 Gender: M : 1955 Exam Date: 03/24/2024 11:41 Ordering Phys: Lilly Orozco MD ([email or web address]) Technologist: CT Exam Location: [facility] [place] Indication: sob BP: / HR: 75 Rhythm: Sinus Technical Quality: Adequate MEASUREMENTS (Male / Female) Normal Values 2D ECHO LVOT Diameter 2.1 cm LV Ejection Fraction MOD 2C 54.8 % LV Ejection Fraction 2C AL 52.5 % LA Diameter 4.1 cm RA Systolic Volume 4C AL 72.1 ml RA Systolic Volume 4C MOD 67.5 ml LA Sys Volume AL 49.0 cm cubed Aorta at Sinotubular Diameter 2.5 cm IVC Diameter 1.7 cm M-MODE LA Ao Ratio MM 1.5 AV Cusp Separation MM 2.4 cm DOPPLER AV Peak Velocity 204.0 cm/s LVOT Peak Velocity 111.0 cm/s AV Area Cont Eq vti 2.0 cm squared AV Area Cont Eq pk 1.9 cm squared MV Peak Velocity 79.0 cm/s MV Area PHT 2.5 cm squared Mitral E to A Ratio 0.8 TR Peak Velocity 130.0 cm/s TR Peak Gradient 6.8 mmHg TV Peak E Velocity 79.0 cm/s Right Atrial Pressure 3.0 mmHg Pulmonary Artery Systolic Pressu 9.8 mmHg PV Peak Velocity 123.5 cm/s FINDINGS Left Ventricle Normal left ventricular size and systolic function, EF 55%. Mild left ventricular hypertrophy. Grade I/IV diastolic dysfunction (abnormal relaxation filling pattern), normal to mildly elevated filling pressures. Right Ventricle The right ventricle is normal in size and function. Right Atrium The right atrium is normal in size. Left Atrium The left atrium is normal in size. Mitral Valve No gross abnormalities noted Aortic Valve Thickened aortic valve. Minimal to moderate calcification in the aortic valve. .aortic valve sclerosis. Tricuspid Valve No gross abnormalities noted Pulmonic Valve No gross abnormalities noted Pericardium Normal pericardium without effusion. Aorta Normal ascending aorta dimension. IVC Normal inferior vena cava. CONCLUSIONS Normal left ventricular size and systolic function, EF 55%. Mild left ventricular hypertrophy. Grade I/IV diastolic dysfunction (abnormal relaxation filling pattern), normal to mildly elevated filling pressures. Minimal to moderate calcification in the aortic valve. Features of aortic valve sclerosis There is no pericardial effusion. There are no intracardiac masses. No similar previous studies are available for comparison Dr Lilly Orozco MD [facility] (Electronically Signed) Final Date: 30 March 2024 08:57 S
== END 2024-03-24 11:07 | disposition home or self-care (01) ==
PROVIDERS: PCP Family Medicine; Visit Provider Internal Medicine Cardiovascular Disease
DX: R06.09 Other forms of dyspnea (principal); R01.1 Cardiac murmur, unspecified; I35.8 Other nonrheumatic aortic valve disorders
CPT/HCPCS: 93306

== ENCOUNTER → 2024-06-02 09:51 | Outpatient (BNVA) | payer MEDICARE, SELFPAY | PROVIDERS: PCP Family Medicine; Visit Provider Internal Medicine Cardiovascular Disease | DX: I65.23 Occlusion and stenosis of bilateral carotid arteries (principal); E11.69 Type 2 diabetes mellitus with other specified complication; Z79.4 Long term (current) use of insulin; I10 Essential (primary) hypertension; Z82.49 Family history of ischemic heart disease and other diseases of the circulatory system; I35.8 Other nonrheumatic aortic valve disorders | CPT/HCPCS: 99214 ==

== ENCOUNTER 2024-06-08 09:47 | Day surgery (SDC) | payer MEDICARE, SELFPAY ==
[2024-06-08 10:29] VITALS: BP 158/76; PULSE 82; RESP 16; TEMP 37.2; O2SAT 98
[2024-06-08 10:35] VITALS: BMI 30.4
--- NOTE | 2024-06-08 10:45 | W.PM.OPSFHP ---
Same Day Surgery H&P Indication for Procedure/HPI DATE OF PROCEDURE: June 08, 2024 CHIEF COMPLAINT/INDICATIONFOR SURGICAL PROCEDURE: need for screening colonoscopy PREOP DIAGNOSIS: need for screening colonoscopy PLANNED PROCEDURE: Operation Date: 06/08/24 11:45 Proposed Procedures p Colonoscopy 99081, Go121, Z12.11(Not Applicable) - Camden Tamayo MD Medications/Allergies* Home Medications Medication Instructions Recorded Confirmed Type amlodipine 5 mg tablet 5 mg PO DAILY 06/20/21 06/08/24 History hydrochlorothiazide 25 mg tablet 25 mg PO DAILY 06/20/21 06/04/24 History lisinopril 40 mg tablet 40 mg PO DAILY 06/20/21 06/08/24 History insulin lispro 200 unit/mL (3 mL) 30 unit SUBCUT TID 08/28/21 06/08/24 History subcutaneous pen (Humalog KwikPen U-200 Insulin) aspirin 81 mg tablet,delayed 81 mg PO DAILY 05/24/22 06/08/24 History release (Adult Low Dose Aspirin) insulin glargine 100 unit/mL 30 unit SUBCUT BID 05/24/22 06/08/24 History subcutaneous solution (Lantus U-100 Insulin) hydrocodone 5 mg-acetaminophen 325 1 tab PO Q6H PRN Pain 05/23/23 06/04/24 History mg tablet Allergies/Adverse Reactions Allergy/AdvReac Type Severity Reaction Status Date / Time No Known Allergies Allergy Verified 06/02/24 10:05 Pertinent History/Comorbid Conditions* Medical History (Updated 06/02/24 @ 10:50 by Lilly Orozco MD) Colostomy in place Family history of ischemic heart disease and other diseases of the circulatory system HTN (hypertension) Diabetes Colon cancer Surgical History (Updated 05/24/22 @ 17:38 by Roselia Levi MD) S/P cataract surgery History of colon surgery Previous back surgery Family History (Updated 06/20/21 @ 09:43 by Pina Peres LPN) Diabetes Father Grandmother Social History Smoking and tobacco/nicotine status: former use of tobacco/nicotine Second hand smoke exposure: No Alcohol intake: current Alcohol intake frequency: holidays/special occasions only Alcohol type: beer Substance/Drug Use: never Pertinent Exam Findings alert, oriented x 3 and clear to auscultation bilaterally Recommendations Surgery/Procedure today Coding Level of Care Code Acute Code for Chg Fwd
[2024-06-08 10:46] LABS: Glucose Point of Care 331 mg/dL (70-110)
[2024-06-08] MEDS: sodium chloride 0.9% 1,000 ML 30 ML IV (10:53)
[2024-06-08] MEDS: insulin regular-human 100 units/1 mL 10 UNIT IVP (11:05)
--- NOTE | 2024-06-08 11:22 | P.ANESASSM_ITS ---
Pre-Anesthetic Assessment Height/Weight: Height 1.75 m Weight 93.44 kg Temp Pulse Resp BP Pulse Ox O2 Del Method 99 F 82 16 158/76 98 Room Air 06/08/24 10:29 06/08/24 10:29 06/08/24 10:29 06/08/24 10:29 06/08/24 10:29 06/08/24 10:29 Preop Diagnosis: need for screening colonoscopy Operation Date: 06/08/24 11:45 Proposed Procedures p Colonoscopy 15157, Go121, Z12.11(Not Applicable) - Camden Tamayo MD Familial anesthetic complications: none Was Beta Jenny taken within 24 hours: N/A Was Clonidine taken within 24 hours: N/A Last intake: Intake Last Liquid Date 06/07/24 Last Liquid Time 17:30 Last Solid Date 06/06/24 Last Solid Time 18:00 Social No alcohol and No tobacco Exam alert, oriented x 3, clear to auscultation bilaterally and regular rate & rhythm Airway Submandibular: within normal limits Cervical ROM: within normal limits Mallampati: Class II Dentition: false History/ROS No significant history except as noted and No significant complaints Pulmonary None reported CV/HEM Hypertension None reported Hepatic None reported GI None reported Metabolic Diabetes Mellitus and Hyperlipidemia [facility] [place] None reported Neuropsych None reported Anesthetic Plan ASA status: 3 Anesthesia: MAC Risk of > 500 ml blood loss (7ml/kg in children): No Other Pertinent Information Stoma Medications/Allergies Home Medications Medication Instructions Recorded Confirmed Last Taken Type amlodipine 5 mg tablet 5 mg PO DAILY 06/20/21 06/08/24 06/08/24 History hydrochlorothiazide 25 mg tablet 25 mg PO DAILY 06/20/21 06/04/24 06/04/24 History lisinopril 40 mg tablet 40 mg PO DAILY 06/20/21 06/08/24 06/07/24 History insulin lispro 200 unit/mL (3 mL) 30 unit SUBCUT TID 08/28/21 06/08/24 06/08/24 History subcutaneous pen (Humalog KwikPen U-200 Insulin) aspirin 81 mg tablet,delayed 81 mg PO DAILY 05/24/22 06/08/24 06/07/24 History release (Adult Low Dose Aspirin) insulin glargine 100 unit/mL 30 unit SUBCUT BID 05/24/22 06/08/24 06/08/24 History subcutaneous solution (Lantus U-100 Insulin) topiramate 50 mg tablet 50 mg PO BID pain 30 days #60 tabs 07/24/22 06/08/24 06/07/24 Rx hydrocodone 5 mg-acetaminophen 325 1 tab PO Q6H PRN Pain 05/23/23 06/04/24 Unknown History mg tablet Allergies Allergy/AdvReac Type Severity Reaction Status Date / Time No Known Allergies Allergy Verified 06/02/24 10:05 Current Medications Generic Name Dose Route Start Last Admin Trade Name Freq PRN Reason Stop Dose Admin Sodium Chloride 1,000 mls @ 30 mls/hr 06/08/24 10:00 06/08/24 10:53 Sodium Chloride 0.9% IV 30 mls/hr .Q24H MARIA G Administration PFSH Anesthesia Medical History Colostomy in place Family history of ischemic heart disease and other diseases of the circulatory system HTN (hypertension) Diabetes Colon cancer Surgical History S/P cataract surgery History of colon surgery Previous back surgery Family History Father Diabetes Grandmother Diabetes Social History Smoking and tobacco/nicotine status: former use of tobacco/nicotine Second hand smoke exposure: No Alcohol intake: current Alcohol intake frequency: holidays/special occasions only Alcohol type: beer Substance/Drug Use: never Data Anesthesia Cardiac Studies: Echocardiogram 03/24/24 Sestamibi Stress Test (Cardiology) 10/25
[2024-06-08 12:20] VITALS: BP 92/55; PULSE 79; RESP 18; TEMP 36.2; O2SAT 94
[2024-06-08 12:30] VITALS: BP 111/63; PULSE 78; RESP 18; TEMP 36.2; O2SAT 96
[2024-06-08 12:36] LABS: Glucose Point of Care 222 mg/dL (70-110)
--- NOTE | 2024-06-08 12:46 | ANE.PACU2 ---
Inpatient post-anesthesia follow up: Airway intact: Yes Vital signs: Temperature 97.2 F Pulse Rate 78 Respiratory Rate 18 Blood Pressure 111/63 Pulse Oximetry 96 Oxygen Delivery Me thod Room Air Oxygen Flow Rate Fraction of Inspir ed Oxygen Hydration adequate: Yes Nausea and vomiting: No Pain level: 1 Mental status: Baseline
== END 2024-06-08 12:46 | disposition home or self-care (01) ==
PROVIDERS: PCP Family Medicine; Visit Provider Surgery
PROC: 0DJD8ZZ Inspection of Lower Intestinal Tract, Via Natural or Artificial Opening Endoscopic (ICD-10-PCS; CPT 45378; principal; 2024-06-08 11:45)
DX: Z12.11 Encounter for screening for malignant neoplasm of colon (principal); K63.89 Other specified diseases of intestine; E11.9 Type 2 diabetes mellitus without complications; Z79.4 Long term (current) use of insulin; I10 Essential (primary) hypertension; Z85.038 Personal history of other malignant neoplasm of large intestine; Z87.891 Personal history of nicotine dependence; E78.5 Hyperlipidemia, unspecified
CPT/HCPCS: 36416; 45380; 82962; 88305; J1815; J2704; J7030

== ENCOUNTER → 2024-06-29 09:10 | Outpatient (BNVA) | payer MEDICARE, SELFPAY | PROVIDERS: PCP Family Medicine; Visit Provider Thoracic Surgery (Cardiothoracic Vascular Surgery) | DX: Z51.89 Encounter for other specified aftercare (principal) | CPT/HCPCS: 99212 ==

== ENCOUNTER → 2024-11-15 07:47 | Outpatient (BNVA) | payer MEDICARE, SELFPAY | PROVIDERS: PCP Family Medicine; Visit Provider Anesthesiology Pain Medicine | DX: Z98.890 Other specified postprocedural states (principal); M51.16 Intervertebral disc disorders with radiculopathy, lumbar region; M47.816 Spondylosis without myelopathy or radiculopathy, lumbar region | CPT/HCPCS: 99214 ==

== ENCOUNTER → 2024-12-10 08:45 | Outpatient (BNVA) | payer MEDICARE, SELFPAY | PROVIDERS: PCP Family Medicine; Visit Provider Nurse Practitioner Family | DX: I10 Essential (primary) hypertension (principal); I65.23 Occlusion and stenosis of bilateral carotid arteries | CPT/HCPCS: 99214 ==

== ENCOUNTER → 2025-06-28 14:45 | Outpatient (BNVA) | payer MEDICARE, SELFPAY | PROVIDERS: PCP Family Medicine; Visit Provider Internal Medicine Cardiovascular Disease | DX: R06.02 Shortness of breath (principal); I35.8 Other nonrheumatic aortic valve disorders; I65.23 Occlusion and stenosis of bilateral carotid arteries; E11.9 Type 2 diabetes mellitus without complications; Z79.4 Long term (current) use of insulin; I10 Essential (primary) hypertension; Z79.82 Long term (current) use of aspirin; Z82.49 Family history of ischemic heart disease and other diseases of the circulatory system; Z87.891 Personal history of nicotine dependence; R07.9 Chest pain, unspecified; Z98.61 Coronary angioplasty status | CPT/HCPCS: 36415; 80048; 83880; 93005; 99214 ==

== ENCOUNTER 2025-07-05 09:29 | Outpatient (CLI) | payer MEDICARE, SELFPAY ==
--- NOTE | 2025-07-05 09:41 | XR_ITS ---
WS: [id number] Exam: XR hand LT min 3V* [id number] Date/Time of Exam: 07/05/2025 9:45 AM Reason For Exam: PAIN IN LEFT HAND DLP: No acute fracture. The joints are relatively well-maintained. No soft tissue foreign bodies. Vascular calcifications about the hand and wrist. IMPRESSION1. No fracture. 2. Vascular calcifications about the hand and wrist.
== END 2025-07-05 09:30 | disposition home or self-care (01) ==
PROVIDERS: PCP Family Medicine; Visit Provider Family Medicine
DX: M79.642 Pain in left hand (principal)
CPT/HCPCS: 73130